=== PATIENT | male | born 1995 | race Caucasian/White ===

== ENCOUNTER 2017-07-31 12:46 | Emergency (ER) | payer OTHER ==
[~2017-07-31] VITALS: Ht 162.6 cm; Wt 58.7 kg
[2017-07-31 12:55] VITALS: BP 129/73
[2017-07-31] MEDS ORDERED: ONDANSETRON 4 MG ODT PO ONE (13:20)
--- NOTE | 2017-07-31 13:20 | NUR ---
21/M BIB FAMILY C/O N/V, DIARRHEA SINCE YESTERDAY. SKIN IS PINK/WARM/DRY; AAOX4 WITH EVEN AND STEADY GAIT; LUNGS CLEAR BL; HR EVEN AND REGULAR; PT DENIES ANY FEVER, CP, SOB, OR COUGH AT THIS TIME; PATIENT STATES PAIN OF 0/10 AT THIS TIME; VSS; PATIENT POSITIONED FOR COMFORT; HOB ELEVATED; BEDRAILS UP X2; BED DOWN. ER MD MADE AWARE OF PT STATUS.
[2017-07-31 13:59] VITALS: BP 124/76
--- NOTE | 2017-07-31 13:59 | NUR ---
Patient discharged with v/s stable. Written and verbal after care instructions given and explained. Patient alert, oriented and verbalized understanding of instructions. Ambulatory with steady gait. All questions addressed prior to discharge. ID band removed. Patient advised to follow up with PMD. Rx of ZOFRAN & IMODIUM given. Patient educated on indication of medication including possible reaction and side effects. Opportunity to ask questions provided and answered.
== END 2017-07-31 13:59 | disposition home or self-care (01) ==
LOC: MED 12:46
DX: R11.2 Nausea with vomiting, unspecified (principal); R19.7 Diarrhea, unspecified
CPT/HCPCS: 99283; S0119

== ENCOUNTER 2017-07-31 18:19 | Emergency (ER) | payer OTHER ==
[~2017-07-31] VITALS: Ht 162.6 cm; Wt 58.1 kg
[2017-07-31 18:31] VITALS: BP 130/73
[2017-07-31] MEDS ORDERED: NACL 0.9% 1,000 ML IV ONE (19:05)
[2017-07-31] MEDS ORDERED: ONDANSETRON 4 MG/2 ML VIAL IVP ONE (19:05)
[2017-07-31 19:07] LABS: BASOPHILS # (AUTO) 0.2 K/uL (0.00-0.22); BASOPHILS % (AUTO) 2.3 % (0.0-2.0); EOSINOPHILS % (AUTO) 0.1 % (0.0-4.0); HEMATOCRIT 51.7 % (36-52); HEMOGLOBIN 17.2 g/dL (12.0-18.0); LYMPHOCYTES # (AUTO) 0.4 K/uL (2.0-11.5); LYMPHOCYTES % (AUTO) 3.9 % (20.5-51.1); MEAN CORPUSCULAR HEMOGLOBIN 29 pg (27-31); MEAN CORPUSCULAR HGB CONC 33 g/dL (33-37); MEAN CORPUSCULAR VOLUME 87 fL (80-94); MONOCYTES # (AUTO) 0.1 K/uL (0.8-1.0); MONOCYTES % (AUTO) 1.6 % (1.7-9.3); NEUTROPHILS # (AUTO) 8.6 K/uL (1.8-7.7); NEUTROPHILS % (AUTO) 92.1 % (42.2-75.2); PLATELET COUNT (AUTO) 152 K/uL (140-450); RED BLOOD CELL COUNT(AUTO) 5.96 MIL/uL (4.20-6.10); RED CELL DISTRIBUTION WIDTH 11.5 % (11.6-13.7); WHITE BLOOD COUNT (AUTO) 9.3 K/uL (4.8-10.8)
--- NOTE | 2017-07-31 19:10 | NUR ---
21/M CAME IN W C/O PERSISTENT N/V SINCE YESTERDAY. PT WAS SEEN THIS AM IN ER FOR SIMILAR SYMPTOMS RX: GLO, PT REPORTS HE TOOK DOSES WITHOUT RELIEF. DENIES HEMETEMESIS, VOMITING X 3, REPORTS DIARRHEA TODAY. DENIES ABD PAIN, -TENDERNESS, BS ACTIVE X 4, SOFT AND ROUND. DENIES HEMATURIA/DYSURIA. DENIES PMH/OTC
[2017-07-31 19:22] LABS: ANION GAP 16.9 (8-16); CARBON DIOXIDE 27.8 mmol/L (21-32); CREATININE 1.1 mg/dL (0.7-1.3); POTASSIUM 3.7 mmol/L (3.5-5.1)
[2017-07-31 19:25] LABS: TOTAL BILIRUBIN 1.4 mg/dL (0.0-1.0)
[2017-07-31 19:26] LABS: ALBUMIN 4.7 g/dL (3.4-5.0)
--- NOTE | 2017-07-31 19:35 | NUR ---
ZOFRAN IVP GIVEN, HIVES ON LT ARM NOTED, NO ACUTE RESPIRATORY DISTRESS. ER MD WALLS MADE AWARE, BENADRYL GIVEN, SEE MAR
[2017-07-31] MEDS ORDERED: diphenhydrAMINE 50 MG/ML VIAL IVP ONE ×2 (19:40→20:25)
[2017-07-31] MEDS ORDERED: METOCLOPRAMIDE 10 MG/2 ML INJ VIAL IVP ONE (19:45)
--- NOTE | 2017-07-31 21:00 | NUR ---
Patient appears to be resting comfortably in bed. Vital Signs within normal limits. Respirations even and unlabored.
--- NOTE | 2017-07-31 21:20 | NUR ---
LT ARM NOTED WITHOUT REDNESS. PT STATES HE IS FEELING BETTER.
[2017-07-31 21:46] LABS: APPEARANCE,URINE CLEAR (CLEAR); BILIRUBIN,URINE 1+ (NEGATIVE); BLOOD, URINE NEGATIVE (NEGATIVE); COLOR,URINE YELLOW (YELLOW); LEUKOCYTE ESTERASE ,URINE NEGATIVE (NEGATIVE); NITRITE, URINE NEGATIVE (NEGATIVE); UGLUCOSE NEGATIVE (NEGATIVE)
[2017-07-31 21:53] LABS: BARBITURATE, URINE NEG. ng/ml (NEG <=200); BENZODIAZEPINE, URINE NEG. ng/mL (NEG <=200); CANNABINOID, URINE POS. ng/mL (NEG <=50); COCAINE, URINE NEG. ng/mL (NEG <=300); OPIATE, URINE NEG. ng/mL (NEG <=2000); PHENCYCLIDINE SCREEN,URINE NEG. ng/mL (NEG <=25)
[2017-07-31 22:00] VITALS: BP 122/72
--- NOTE | 2017-07-31 22:00 | NUR ---
Patient discharged with v/s stable. Written and verbal after care instructions given and explained. Patient alert, oriented and verbalized understanding of instructions. Ambulatory with steady gait. All questions addressed prior to discharge. ID band removed. Patient advised to follow up with PMD. Rx of REGLAN 10MG given. Patient educated on indication of medication including possible reaction and side effects. Opportunity to ask questions provided and answered.
== END 2017-07-31 22:00 | disposition home or self-care (01) ==
LOC: MED 18:19
DX: F12.90 Cannabis use, unspecified, uncomplicated (principal); R11.2 Nausea with vomiting, unspecified; Z88.8 Allergy status to other drugs, medicaments and biological substances
CPT/HCPCS: 36415; 80053; 80305; 81003; 83690; 85025; 96361; 96374; 96375; 96376; 99285; J1200; J2405; J2765; J7030

== ENCOUNTER 2018-05-08 20:30 | Emergency (ER) | payer OTHER ==
[~2018-05-08] VITALS: Ht 162.6 cm; Wt 70.3 kg
[2018-05-08 20:35] VITALS: BP 113/63
--- NOTE | 2018-05-08 20:38 | NUR ---
PT TAKEN TO BED 11
[2018-05-08] MEDS ORDERED: NACL 0.9% 1,000 ML IV ONE (20:42)
[2018-05-08] MEDS ORDERED: KETOROLAC 30 MG/ML VIAL IVP ONE (20:45)
[2018-05-08] MEDS ORDERED: METOCLOPRAMIDE 10 MG/2 ML INJ VIAL IVP ONE (20:45)
--- NOTE | 2018-05-08 20:46 | NUR ---
PT PRESENTS TO ED WITH C/O ABDOMNAL PAIN X 45 MINS. PT STATES "I ATE A TANGERINE AND NOW MY STOMACH HURTS AND I MADE MYSELF THROW UP". PT CONFIRMS N/V/D. ABDOMEN IS SOFT, NON-TENDER. PT DENIES PAIN UPON PALPATION. BOWEL SOUNDS PRESENTS X4 QUADRANTS. PENDING MD BOSTON.
[2018-05-08 21:16] LABS: BASOPHILS # (AUTO) 0.1 K/uL (0.00-0.22); BASOPHILS % (AUTO) 0.7 % (0.0-2.0); EOSINOPHILS # (AUTO) 0.2 K/uL (0-0.4); EOSINOPHILS % (AUTO) 2.3 % (0.0-4.0); HEMOGLOBIN 15.7 g/dL (12.0-18.0); LYMPHOCYTES # (AUTO) 1.4 K/uL (2.0-11.5); MEAN CORPUSCULAR HEMOGLOBIN 30 pg (27-31); MEAN CORPUSCULAR HGB CONC 35 g/dL (33-37); MEAN CORPUSCULAR VOLUME 85.9 fL (80-94); MONOCYTES # (AUTO) 0.4 K/uL (0.8-1.0); MONOCYTES % (AUTO) 6.1 % (1.7-9.3); NEUTROPHILS # (AUTO) 4.9 K/uL (1.8-7.7); NEUTROPHILS % (AUTO) 70.9 % (42.2-75.2); PLATELET COUNT (AUTO) 171 K/uL (140-450); RED BLOOD CELL COUNT(AUTO) 5.24 MIL/uL (4.20-6.10); RED CELL DISTRIBUTION WIDTH 12.8 % (11.6-13.7)
--- NOTE | 2018-05-08 21:16 | NUR ---
Dany soliman in [facility] - 05/08/18 at 2123 by IVÁN PT TAKEN TO CT
--- NOTE | 2018-05-08 21:16 | NUR ---
PT TO CT SCAN VIA WHEELCHAIR
--- NOTE | 2018-05-08 21:20 | NUR ---
Note maria mone in [facility] - 05/08/18 at 2150 by PRIYA PT AMBULATED TO BATHROOM. STATES "I CAN'T PEE." PT REQUESTING TO LEAVE AT THIS TIME. EDUCATED ON RISKS OF LEAVING. STILL REQUESTING TO LEAVE. PT REMOVED IV. DRESSING APPLIED TO SITE. ER AWARE.
--- NOTE | 2018-05-08 21:22 | NUR ---
PT RETURNED FROM CT SCAN.
--- NOTE | 2018-05-08 21:23 | NUR ---
PT AMBULATED TO BATHROOM. STATES "I CAN'T PEE." PT REQUESTING TO LEAVE AT THIS TIME. EDUCATED ON RISKS OF LEAVING. STILL REQUESTING TO LEAVE. PT REMOVED IV. DRESSING APPLIED TO SITE. ER AWARE.
[2018-05-08 21:26] VITALS: BP 113/63
--- NOTE | 2018-05-08 21:26 | NUR ---
PT ELOPED AT THIS TIME. AMBULATORY WITH MOTHER. NO FURTHER CARE PROVIDED.
[2018-05-08 21:58] LABS: ANION GAP 11.1 (8-16); CARBON DIOXIDE 28.6 mmol/L (21-32); CREATININE 1.1 mg/dL (0.7-1.3); POTASSIUM 3.7 mmol/L (3.5-5.1); TOTAL BILIRUBIN 0.8 mg/dL (0.0-1.0)
[2018-05-08 21:59] LABS: ALBUMIN 4.5 g/dL (3.4-5.0)
== END 2018-05-08 21:26 | disposition left against medical advice (07) ==
LOC: MED 20:30
DX: R10.9 Unspecified abdominal pain (principal); Z53.21 Procedure and treatment not carried out due to patient leaving prior to being seen by health care provider
CPT/HCPCS: 36415; 74176; 80053; 85025; 96374; 96375; 99281; J1885; J2765; J7030

== ENCOUNTER 2023-11-13 06:30 | Emergency (ER) | payer MEDICAID, OTHER ==
[~2023-11-13] VITALS: Ht 160 cm; Wt 64.9 kg
[2023-11-13 06:37] VITALS: BP 126/81; PULSE 78; RESP 18; TEMP 98.1; O2SAT 98
[2023-11-13 06:52] VITALS: TEMP 98.1
[2023-11-13 07:30] VITALS: BP 125/84; PULSE 58; RESP 18; O2SAT 97
== END 2023-11-13 07:50 | disposition home or self-care (01) ==
LOC: MED 06:30
DX: R07.89 Other chest pain (principal); R03.0 Elevated blood-pressure reading, without diagnosis of hypertension; Z79.899 Other long term (current) drug therapy; Z88.8 Allergy status to other drugs, medicaments and biological substances
CPT/HCPCS: 71045; 93005; 99283